=== PATIENT | female | born 2000 | race American Indian/Alaskan Native ===

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

== ENCOUNTER 2019-12-04 10:11 | Emergency (ER) | payer SELFPAY ==
[2019-12-04 10:17] VITALS: BP 110/71
[2019-12-04] MEDS ORDERED: ALBUTEROL 2.5 MG/3 ML NEBU IH ONE (10:41)
[2019-12-04] MEDS ORDERED: IPRATROPIUM 0.02% NEBU 2.5 ML IH ONE (10:41)
[2019-12-04] MEDS ORDERED: dexAMETHasone 20 MG/5 ML VIAL IM ONE (10:41)
--- NOTE | 2019-12-04 10:43 | Emergency Department Report ---
Blank Doc - Documentation Documentation: 19-year-old female that presents with SOB and wheezing. This initial assessment/diagnostic orders/clinical plan/treatment(s) is/are subject to change based on patient's health status, clinical progression and re- assessment by fellow clinical providers in the ED. Further treatment and workup at subsequent clinical providers discretion. Patient/guardians urged not to elope from the ED as their condition may be serious if not clinically assessed and managed. Initial orders include: 1- Patient sent to [facility] for further evaluation and treatment 2- breathing treatment
--- NOTE | 2019-12-04 11:50 | Emergency Department Report ---
ED Asthma HPI - General Chief Complaint: Dyspnea/Respdistress Stated Complaint: ASTHMA Time Seen by Provider: 12/04/19 10:41 Source: patient Mode of arrival: Ambulatory Limitations: No Limitations - History of Present Illness Initial Comments: Patient is a 19-year-old female presents emergency room complaints of an asthma exacerbation that began this morning. Patient states that she ran out of her pro-air inhaler last night. She has associated wheezing and shortness of breath. She denies any cough, fever, nausea, vomiting, diarrhea, chest pain. She denies any sick contacts. No recent travel. She denies any other past medical history except for asthma. No allergies to medications. Last menstrual cycle 11/20/2019. she states that she is a smoker. - Related Data Previous Rx's Medication Instructions Recorded Last Taken Type metroNIDAZOLE [Flagyl] 500 mg PO Q12HR #14 tab 05/03/18 Unknown Rx cephALEXin [Keflex] 500 mg PO Q6HR 5 Days #20 capsule 11/06/18 Unknown Rx Albuterol Mdi (or & Nicu Only) 2 puff IH QID PRN #8.5 gram 12/04/19 Unknown Rx [ProAir HFA Inhaler] Prednisone [predniSONE 10 mg 10 mg PO .TAPER #1 tab.ds.pk 12/04/19 Unknown Rx (6-Day Pack, 21 Tabs)] Allergies Allergy/AdvReac Type Severity Reaction Status Date / Time No Known Allergies Allergy Verified 05/03/18 16:41 ED Review of Systems ROS: Stated complaint: ASTHMA Other details as noted in HPI Comment: All other systems reviewed and negative ED Past Medical Hx - Past Medical History Previous Medical History?: Yes Hx Asthma: Yes Additional medical history: vaginal dleivery 06-05-2015 - Surgical History Past Surgical History?: Yes Hx Appendectomy: Yes Additional Surgical History: Apendectomy 2015 - Social History Smoking Status: Current Every Day Smoker Substance Use Type: None - Medications Home Medications: Home Medications Medication Instructions Recorded Confirmed Last Taken Type metroNIDAZOLE [Flagyl] 500 mg PO Q12HR #14 tab 05/03/18 Unknown Rx cephALEXin [Keflex] 500 mg PO Q6HR 5 Days #20 capsule 11/06/18 Unknown Rx Albuterol Mdi (or & Nicu Only) 2 puff IH QID PRN #8.5 gram 12/04/19 Unknown Rx [ProAir HFA Inhaler] Prednisone [predniSONE 10 mg 10 mg PO .TAPER #1 tab.ds.pk 12/04/19 Unknown Rx (6-Day Pack, 21 Tabs)] ED Physical Exam - General Limitations: No Limitations General appearance: alert, in no apparent distress - Head Head exam: Present: atraumatic, normocephalic - Eye Eye exam: Present: normal appearance - ENT ENT exam: Present: mucous membranes moist - Respiratory Respiratory exam: Present: normal lung sounds bilaterally. Absent: respiratory distress, wheezes, rales, rhonchi, stridor, chest wall tenderness, accessory muscle use, decreased breath sounds, prolonged expiratory - Cardiovascular Cardiovascular Exam: Present: regular rate, normal rhythm, normal heart sounds. Absent: systolic murmur, diastolic murmur, rubs, gallop - Neurological Exam Neurological exam: Present: alert, oriented X3 - Psychiatric Psychiatric exam: Present: normal affect, normal mood - Skin Skin exam: Present: warm, dry, intact ED Course Vital Signs 12/04/19 10:15 Temperature 98.4 F Pulse Rate 104 H Respiratory 22 Rate Blood Pressure 110/71 O2 Sat by Pulse 98 Oximetry ED Medical Decision Making - Medical Decision Making Patient is a 19-year-old female presents emergency room complaints of an asthma exacerbation that began this morning. Patient states that she ran out of her pro-air inhaler last night. She has associated wheezing and shortness of breath. She denies any cough, fever, nausea, vomiting, diarrhea, chest pain. She denies any sick contacts. No recent travel. She denies any other past medical history except for asthma. No allergies to medications. Last menstrual cycle 11/20/2019. she states that she is a smoker. Initial triage vitals with very mild tachycardia which improved to normal upon auscultation. Patient was given albuterol, Atrovent, dexamethasone prior to my examination. On my examination wheezing has completely resolved, patient has good air movement, no respiratory distress, no accessory muscle use. she has no clinical signs of PNA or acute bacterial bronchitis. Patient states that she is feeling much better and ready to go home and states that she just needs a refill of her pro-air inhaler. Patient given prescription of her pro-air inhaler and given 5 days of prednisone. Advised patient to please take medication as prescribed. Please stop smoking. Follow-up with a primary care doctor. Return to emergency room for any new or worsening symptoms. Critical care attestation.: If time is entered above; I have spent that time in minutes in the direct care of this critically ill patient, excluding procedure time. ED Disposition Clinical Impression: Tobacco abuse Asthma exacerbation Qualifiers: Asthma severity: unspecified severity Asthma persistence: unspecified Qualified Code(s): J45.901 - Unspecified asthma with (acute) exacerbation Disposition: TO HOME OR SELFCARE Is pt being admited?: No Does the pt Need Aspirin: No Condition: Stable Instructions: Asthma (ED), How to Stop Smoking (ED) Additional Instructions: please take medication as prescribed. Please stop smoking. Follow-up with a primary care doctor. Return to emergency room for any new or worsening symptoms. Prescriptions: Prednisone [predniSONE 10 mg (6-Day Pack, 21 Tabs)] 10 mg PO .TAPER #1 tab.ds.pk Albuterol Mdi (or & Nicu Only) [ProAir HFA Inhaler] 2 puff IH QID PRN #8.5 gram PRN Reason: Shortness Of Breath Referrals: RUT MADSEN MD [Staff Physician] - 2-3 Days [facility] [Provider Group] - 2-[address] [facility] [Outside] - 2-3 Days Time of Disposition: 11:49 Print Language: [place]
== END 2019-12-04 11:58 | disposition home or self-care (01) ==
LOC: ED 10:11
DX: J45.901 Unspecified asthma with (acute) exacerbation (principal); Z79.899 Other long term (current) drug therapy; Z90.49 Acquired absence of other specified parts of digestive tract; Z72.0 Tobacco use
CPT/HCPCS: 94640; 96372; 99283; J1100